=== PATIENT | female | born 1940 | race Caucasian/White ===

== ENCOUNTER 2024-06-17 13:46 | Outpatient (AMB) | payer MEDICARE, BC, SELFPAY ==
[2024-06-17 13:48] VITALS: BP 131/75; PULSE 71; RESP 17; TEMP 36.4; O2SAT 99; BMI 20.7
--- NOTE | 2024-06-17 13:48 | PD.RESCLINIC ---
Vital Signs 06/17/24 13:48 Height 1.6 m Height Method Stated Weight 53.07 kg Weight Measurement Method Standing Scale BMI 20.7 BP 131/75 H Blood Pressure Source Automatic Cuff Blood Pressure Location Left Upper Arm Position Sitting Respiration 17 Pulse 71 Pulse Source Monitor Temp 97.5 F Temp Source Oral Pulse Oximetry (%) 99 Oxygen Delivery Method Room Air Allergies/Meds Allergies & Medications Allergies codeine Allergy (Severe, Verified 07/17/24 16:17) Vomiting Medication Reconciliation levothyroxine 50 mcg tablet 50 mcg PO QDAY 11/12/20 [History Confirmed 06/17/24] metoprolol tartrate 50 mg tablet 50 mg PO BID 09/15/21 [History Confirmed 06/17/24] trazodone 100 mg tablet 100 mg PO HS 09/15/21 [History Confirmed 06/17/24] dexlansoprazole 60 mg capsule,biphase delayed release 60 mg PO QDAY 05/19/24 [History Confirmed 06/17/24] loratadine 10 mg tablet (Allergy Relief (loratadine)) 10 mg PO QDAY 05/19/24 [History Confirmed 06/17/24] losartan 50 mg tablet 50 mg PO QDAY 05/19/24 [History Confirmed 06/17/24] sertraline 25 mg tablet 25 mg PO QDAY 05/19/24 [History Confirmed 06/17/24] vonoprazan 20 mg tablet (Voquezna) 20 mg PO QDAY 05/19/24 [History Confirmed 06/17/24] montelukast 10 mg tablet 10 mg PO QDAY 06/06/24 [History Confirmed 06/17/24] mecobalamin (vitamin B12) 5,000 mcg disintegrating tablet 5,000 mcg PO QWEEK #4 tabs 06/10/24 [Rx Confirmed 06/17/24] omeprazole 40 mg capsule,delayed release 40 mg PO BID #60 caps 06/10/24 [Rx Confirmed 06/17/24] dextromethorphan polistirex 30 mg/5 mL oral susp ext.release 12hr (Robitussin ER) 10 ml PO Q12H #89 mL 06/17/24 [Rx] megestrol 800 mg/20 mL (20 mL) oral suspension 200 mg (5 mL) PO BID #1,000 mL 11/19/24 [Rx] MA Intake Visit Data Collection New Patient or Established: Established Patient (seen at [facility] within 3 years) Seen by Clinical Staff ONLY (RN/MA): No Pain Present Currently: Yes Pain Location: Mouth Pain scale:: 5 Pain Scale Used: Gonzales-Maurer/Numerical PCP or OBGYN visit in last 3 months: Yes Do You Feel Safe at Home: Yes Authorities Contacted: N/A Smoking Status Smoking Status: Never smoker Immunization / Flu Flu Vaccine in the Last 12 Months: No Flu Vaccine Exclusion Criteria: No Exclusion Criteria Past Medical History Past Medical History NEUROLOGIC: Negative Neurological Disorders or Seizures CARDIAC: Positive Cardiac Disorders, Cardiac Arrhythmia (A FIB) and Hypertension; Negative Congestive Heart Failure RESPIRATORY: Positive Intubation (08/31 cardiac arrest 02/14/19); Negative Chronic Obstructive Pulmonary Disease (COPD) or Asthma GASTROINTESTINAL: Positive Gastrointestinal Disorders, Gall Bladder Disease and Gastroesophageal Reflux Disease GENITOURINARY: Negative Genitourinary Disorders or Renal Disease REPRODUCTIVE: Negative Pelvic Inflammatory Disease ENDOCRINE: Positive Endocrine Disorders, Hyperthyroidism and Hypothyroidism; Negative Diabetes Mellitus Type 1 or Diabetes Mellitus Type 2 HEMATOLOGIC: Negative Blood Disorders or Sickle Cell Disease OTHER HISTORY: Negative Hospitalization, Blood Transfusions, Blood Transfusion Reaction or Anesthesia Reactions Family History FAMILY HISTORY: Negative Family Cardiac Disorders Surgical History SURGICAL: Positive Auto Implanted Cardiovert Defib and Abdominal Surgery; Negative Cardiac Surgery, Endocrine Surgery, Ear Surgery, Nephrectomy or Joint Replacement Social History SMOKING STATUS: Smoking status: Never smoker ALCOHOL: Alcohol Intake: Never HOUSING: Housing: House LIVES WITH: Lives With: Alone Patient Portal Questionaires Social History Living Situation History Housing: House Housing Other:: Patient lives alone Tobacco History Smoking Status: Never smoker Alcohol History Alcohol Intake: Never Domestic Abuse History Do You Feel Safe at Home: Yes Review of Systems Report any current symptoms Only answer those that you have currently: Past Medical History Past Medical History Have you ever been diagnosed with any of the following: Neurological Problems Seizures: No Cardiology Problems Cardiac Arrhythmia: Yes (A FIB) Congestive Heart Failure: No Hypertension: Yes Respiratory Problems Chronic Obstructive Pulmonary Disease (COPD): No Asthma: No Intubation: Yes (08/31 cardiac arrest 02/14/19) Stomache/Intestinal Problems Gall Bladder Disease: Yes Gastroesophageal Reflux Disease: Yes Genital/Urinary Problems Renal Disease: No Reproductive Problems Pelvic Inflammatory Disease: No Endocrine Problems Diabetes Mellitus Type 1: No Diabetes Mellitus Type 2: No Hyperthyroidism: Yes Hypothyroidism: Yes Blood Problems Sickle Cell Disease: No Other Problems Hospitalization: No Blood Transfusions: No Blood Transfusion Reaction: No Anesthesia Reactions: No History of Present Illness HPI Narrative Ms. 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 Dawkins outpatient extensively and also at [facility] and [place], as per them she is a poor candidate for surgery because of her underlying heart condition. Patient was seen recently at the clinic, was sent for further workup including AchR antibodies, vitamin B12 level, iron level.Patient's vitamin B12 studies showed B12 of 329, folate of 11.5, within normal limits, acetylcholine receptor antibodies were negative. Patient's fluoroscopy showed moderate intermittent gastroesophageal reflux, 20% stenosis at GE junction likely reflux esophagitis. Patient reported already taking pantoprazole 40 mg on a daily basis without relief. She does not use dentures, reports using blended food and eats meals in bed. she was counseled regarding taking protein supplements and megestrol Patient verbalized understanding, discussed with patient about obtaining dentures. she was counseled about her condition that surgery is the only cure as for now and because of her medical condition she is not a surgical candidate. will prescribe her mucolytic . extensive counceling done on her condition. Review of Systems Review of Systems Systems Reviewed: All systems reviewed, normal except as documented Narrative Review of Systems: GENERAL: Comfortable adult seen resting no acute distress, lean and thin appearance VITALS: All vitals were reviewed and the pulse ox is 98% on room air HEENT: Normocephalic, atraumatic. Pupils are equal and reactive. no dentures in mouth NECK: Supple, nontender, no JVD CARDIOVASCULAR: Heart regular rhythm & rate. S1/S2. no murmur or gallop rub or extra beats.AICD in chest noted LUNGS: Clear to auscultation bilaterally with symmetrical chest rise. No laboring tachypnea or wheezing. No intercostal subcostal retraction. No rales and no rhonchi. ABDOMEN: Soft, flat, nontender to palpation, no guarding or rebound tenderness. Active and normal bowel sounds. EXTREMITIES:Moves all 4 extremities,No B/L LE edema. SKIN: Warm and dry, no jaundice or rashes noted. NEURO: Patient is AO x 3, Cranial nerves II through XII grossly intact. There is no focal neurologic deficits noted. PSYCHIATRIC: Patient is in normal mood, cooperative, no SI or HI or hallucinations. Assessment & Plan Diagnosis / Problem List (1) Dysphagia: Status: Suspected Qualifiers: Dysphagia type: oropharyngeal phase Qualified Code(s): R13.12 - Dysphagia, oropharyngeal phase Assessment & Plan: She is complaining of excessive mucus production previous Acetylcholine receptor antibodies negative,Vitamin B12 levels WNL, folate WNL, Fluoroscopy significant for moderate intermittent gastroesophageal reflux 20% stenosis at the GE junction likely reflux esophagitis,Recommended follow-up with her dentist for dentures, patient does not want dentures - Followed up with Dr. Dawkins outpatient extensively and also at [facility] and [place], patient is a poor candidate for surgery because of her underlying heart condition. Plan: -Continue omeprazole 40 mg twice daily for 30 days - Started Robutisson - Continue vitamin B12 5000 weekly for 1 month - Patient counseled on importance of sitting straight in a chair and avoiding distractions while eating, counseled on focusing on swallowing. - Patient counseled on eating small bites, followed by sips of water as needed. - Patient advised to continue to eat blended food and take aspiration precautions. - Patient counseled on not lying down for 2 hours after finishing meals. - Recommended follow-up with GI in higher center - Recommended follow-up with dentist to obtain dentures. (2) Zenker diverticulum: Status: Acute Assessment & Plan: - Followed up with Dr. Dawkins outpatient extensively and also at [facility] and [place], patient is a poor candidate for surgery because of her underlying heart condition. Plan: recommended to follow up in higher center (3) Appetite impaired: Status: Acute Assessment & Plan: As per patient she is been loosing weight. she was 170 Lb beforce icd placement and is now around 116 Lb Plan: -started her on Megesterol -counceled her to take OTC protein suppliments Additional Assessment Attending note: I, Juan Tomas MD, attest that I was physically present for the garcia portions of the service and evaluated the patient with the resident and I reviewed and discussed the case with the resident and agree with the resident's findings and plans of care as documented above. Follow-up visit. Medication reviewed. Self-care and diet reviewed. We are trying Megace to help stimulate appetite. Underlying issue of Zenker's diverticulum likely responsible for continuing symptoms of dysphagia, and excess salivation/mucus production. She has lost 1 kg since last visit. No other changes to regimen today. Juan Tomas MD Advanced Care Planning Advance care planning discussed with:: patient Physician Billing Established Patient Established Patient: E/M Level 3-CPT 09475 Office Procedures [facility] Level of Care Nursing/Assessment Patient Status: Established Patient Nursing Assessment/Reassessment: Medication Reconciliation, Update PMH in EMR and Vital Signs Coordination of Care: Complex Care and Chronic Disease 1-5, Education Complex Pt/Fam and Staff clarify orders Established Patient Charge Established Patient Point Assignment: 85 Established Patient Point Charge: EP Level 3 (80-115)
== END 2024-06-17 14:30 | disposition home or self-care (01) ==
LOC: HODAHC 13:46
PROVIDERS: Supervising Provider Internal Medicine; Visit Provider Student in an Organized Health Care Education/Training Program
DX: R13.12 Dysphagia, oropharyngeal phase (principal); K22.5 Diverticulum of esophagus, acquired; R63.0 Anorexia; Z68.20 Body mass index [BMI] 20.0-20.9, adult
CPT/HCPCS: 99213; G0463

== ENCOUNTER 2024-07-17 16:12 | Emergency (ER) | payer MEDICARE, BC, SELFPAY ==
[2024-07-17 16:48] VITALS: BP 146/78; PULSE 71; RESP 18; TEMP 37; O2SAT 96
--- NOTE | 2024-07-17 17:13 | XR_ITS ---
Examination: Knee, right , 3 views Technique: Knee AP, lateral, oblique 3 views Date and time of exam: July 17, 2024 1730 hours INDICATIONS: Patient fell today with injury to the knee, knee pain. FINDINGS: No fracture or dislocation Small knee effusion IMPRESSION: No fracture or dislocation
--- NOTE | 2024-07-17 17:13 | XR_ITS ---
Examination: Ribs, bilateral, with PA chest, 5 views Technique: Chest PA, RIBS AP, RPO, LPO, AP coned lower ribs 5 views Exam date and time: July 17, 2024 1730 hours INDICATIONS: Patient fell today with injury to right and left chest, bilateral rib pain Findings: No significant cardiac enlargement Cardiac leads satisfactory position No pneumothorax Severe osteopenia No acute rib fractures IMPRESSION: No pneumothorax pulmonary contusion or hemothorax No acute rib fractures
--- NOTE | 2024-07-17 17:13 | XR_ITS ---
Examination: Hand, left 3 views Technique: Hand AP, oblique, lateral 3 views Date and time of exam: July 10, 2024 1730 hours INDICATIONS: Patient fell today with injury to the hand, hand pain FINDINGS: Prominent osteopenia No acute fracture No dislocation No foreign body IMPRESSION: No acute fracture
--- NOTE | 2024-07-17 17:15 | PD.EDRME ---
Rapid Medical Screening Exam E Arrival date/time: 07/17/24 16:12 This is a 83-year-old female presents to the emergency department with complaints of left hand right knee and bilateral rib pain status post fall. Reports she tripped over some cats outside her house. I have greeted and performed a focused initial assessment of this patient. Initial appropriate labs ordered at this time. A comprehensive ED assessment and evaluation of the patient and analysis of all test and completion of medical decision making process will be conducted by additional ED provider. Chief Complaint: Fall Time Seen by Provider: 07/17/24 16:50 Vital signs: Vital Signs Temperature 98.6 F 07/17/24 16:48 Pulse Rate 71 07/17/24 16:48 Respiratory Rate 18 07/17/24 16:48 Blood Pressure 146/78 H 07/17/24 16:48 Pulse Oximetry (%) 96 07/17/24 16:48 Oxygen Delivery Method Room Air 07/17/24 16:48
[2024-07-17] MEDS: ACETAMINOPHEN 500 MG TABLET 1000 MG PO (17:23)
--- NOTE | 2024-07-17 19:40 | PC.NURSE ---
CALLED PT IN ER LOBBY AND OUTSIDE OF ER AND NO ANSWER AT THIS TIME.
--- NOTE | 2024-07-17 20:15 | PC.NURSE ---
CALLED PT IN ER LOBBY AND OUTSIDE OF ER AND NO ANSWER AT THIS TIME.
--- NOTE | 2024-07-17 20:50 | PC.NURSE ---
CALLED PT IN ER LOBBY AND OUTSIDE OF ER AND NO ANSWER AT THIS TIME.
== END 2024-07-17 20:49 | disposition left against medical advice (07) ==
PROVIDERS: Emergency Provider Emergency Medicine; PCP Family Medicine
DX: S69.92XA Unspecified injury of left wrist, hand and finger(s), initial encounter (principal); S29.9XXA Unspecified injury of thorax, initial encounter; S89.91XA Unspecified injury of right lower leg, initial encounter; W01.0XXA Fall on same level from slipping, tripping and stumbling without subsequent striking against object, initial encounter; Z53.29 Procedure and treatment not carried out because of patient's decision for other reasons
CPT/HCPCS: 71111; 73130; 73562; 99281; A9270

== ENCOUNTER 2025-01-03 01:39 | Emergency (ER) | payer MEDICARE, BC, SELFPAY ==
[2025-01-03 01:49] VITALS: BP 162/77; PULSE 70; RESP 18; TEMP 36.9; O2SAT 98
--- NOTE | 2025-01-03 02:53 | PD.EDADDENDU ---
Emergency Room Addendum Addendum Narrative: Before I saw the patient, I was told the patient eloped. Vincenzo Peck MD
== END 2025-01-03 06:12 | disposition left against medical advice (07) ==
LOC: SERX 03:02
PROVIDERS: Emergency Provider Emergency Medicine
DX: Z53.21 Procedure and treatment not carried out due to patient leaving prior to being seen by health care provider (principal)
CPT/HCPCS: 99281

== ENCOUNTER 2025-01-05 09:42 | Emergency (ER) | payer MEDICARE, SELFPAY ==
[2025-01-05 09:45] VITALS: BMI 20.7
[2025-01-05 09:53] VITALS: BP 170/89; PULSE 70; RESP 17; TEMP 36.5; O2SAT 96
--- NOTE | 2025-01-05 10:01 | XR_ITS ---
Examination: Ultrasound soft tissue neck TECHNIQUE: Grayscale sonographic images soft tissue neck Date and time: January 05, 2025 1014 hours INDICATIONS: Difficulty swallowing beginning one week ago FINDINGS: No cystic or solid masses noted IMPRESSION: Negative study If symptoms persist, consider CT soft tissue neck post intravenous contrast follow-up
--- NOTE | 2025-01-05 10:02 | PD.EDRME ---
Rapid Medical Screening Exam E Arrival date/time: 01/05/25 09:42 84-year-old female with a history of hypothyroidism, hypertension, a pacemaker, presents to the emergency room with a chief complaint of 1 week of difficulty swallowing and increased phlegm. Patient states she feels like food is getting stuck in her throat. I have greeted and performed a focused initial assessment of this patient. A comprehensive ED assessment and evaluation of the patient, analysis of all test results, and completion of the medical decision making process will be conducted by additional ED providers. Chief Complaint: Shortness of Breath/Dyspnea Time Seen by Provider: 01/05/25 09:48 Vital signs: Vital Signs Temperature 97.7 F 01/05/25 09:53 Pulse Rate 70 01/05/25 09:53 Respiratory Rate 17 01/05/25 09:53 Blood Pressure 170/89 H 01/05/25 09:53 Pulse Oximetry (%) 96 01/05/25 09:53 Oxygen Delivery Method Room Air 01/05/25 09:53 Vital signs reviewed by provider: Yes
--- NOTE | 2025-01-05 10:04 | XR_ITS ---
Examination: PA lateral chest 2 views TECHNIQUE: Upright PA lateral chest 2 views Date and time: January 05, 2025 1039 hours Comparison July 17, 2024 INDICATIONS: Patient states something stuck in the throat FINDINGS: Mild CHF Mild enlargement cardiac contour. Prominent vascular congestion with perihilar basilar edema Small bilateral pleural effusions Cardiac leads satisfactory position IMPRESSION: Mild CHF
[2025-01-05 10:21] LABS: Basophils # (Auto) 0.1 Thou/mm3 (0.0-0.2); Basophils % (Auto) 1 % (0-2.5); Eosinophils % (Auto) 0 % (0-10); Hematocrit 34.2 % (36.0-46.0); Hemoglobin 12.1 g/dL (12.0-16.0); Immature Granulocytes % (Auto) 0 % (0-0); Immature Granulocytes Auto 0.03 Thou/mm3 (0.00-0.00); Lymphocytes # (Auto) 1.3 Thou/mm3 (1.0-4.8); Lymphocytes % (Auto) 14 % (10-50); Mean Corpuscular HGB Conc 35.4 g/dl (31.0-37.0); Mean Corpuscular Hemoglobin 33.7 pg (25.0-35.0); Mean Corpuscular Volume 95 fL (80-100); Monocytes # (Auto) 0.9 Thou/mm3 (0.0-0.8); Monocytes % (Auto) 10 % (0-12); Neutrophils # (Auto) 6.6 Thou/mm3 (1.8-7.7); Neutrophils % (Auto) 74 % (37-80); Nucleated Red Blood Cell % 0 /100 WBC (0); Platelet Count 195 Thou/mm3 (140-440); RDW Standard Deviation 71.9 fL (36.4-46.3); Red Blood Count 3.59 Miln/mm3 (4.00-5.20); White Blood Count 8.9 Thou/mm3 (3.6-11.0)
[2025-01-05 10:35] LABS: Alanine Aminotransferase 34 U/L (10-49); Albumin/Globulin Ratio 1.8 (1.2-2.2); Alkaline Phosphatase 107 U/L (46-116); Anion Gap 11 (7-16); BUN/Creatinine Ratio 9 Ratio (12-20); Bilirubin,Total 1.3 mg/dL (0.3-1.2); Blood Urea Nitrogen 10 mg/dL (9-23); Calcium 9.1 mg/dL (8.3-10.6); Calcium (Corrected) 9.1 mg/dL (8.5-10.1); Carbon Dioxide 24.2 mMol/L (20.0-31.0); Chloride 106 mMol/L (98-107); Creatinine (Component) 1.1 mg/dL (0.6-1.3); Globulin 2.2 gm/dL (2.3-3.5); Glucose 133 mg/dL (74-106); Osmolality,Calculated 282 (275-295); Potassium 3.8 mMol/L (3.4-5.1); Sodium 141 mMol/L (136-145); Total Protein 6.2 gm/dL (5.7-8.2); eGFR 50 See Note
[2025-01-05 10:54] LABS: Collection Type, Urine Clean Catch
[2025-01-05 11:20] LABS: Bilirubin,Urine Negative (Negative); Blood,Urine Negative (Negative); Clarity,Urine Clear (Clear/Hazy); Color,Urine Yellow (Lt Yel-Yel); Culture Indicated,Urine Not Indicated; Glucose, Urine Negative (Negative); Ketones,Urine Negative (Negative); Leukocyte Esterase,Urine Negative (Negative); Nitrite,Urine Negative (Negative); PH,Urine 6.5 (5.0-7.0); Protein,Urine Negative (Neg - Trace); RBC,Urine 2 /hpf (0-3); Squamous Epithelial Cell,Urine 4 /hpf (0-5); Urobilinogen,Urine Negative mg/dL (0.0-1.0); WBC,Urine 1 /hpf (0-5)
--- NOTE | 2025-01-05 12:17 | PC.NURSE ---
seen by josefina joe
== END 2025-01-05 12:17 | disposition left against medical advice (07) ==
LOC: SERX 10:09
PROVIDERS: Nurse Practitioner Family; Emergency Provider Family Medicine; PCP Family Medicine
DX: R13.10 Dysphagia, unspecified (principal); R06.02 Shortness of breath; R06.00 Dyspnea, unspecified; Z53.29 Procedure and treatment not carried out because of patient's decision for other reasons
CPT/HCPCS: 36415; 71046; 76536; 80053; 81001; 85025; 99281

== ENCOUNTER → 2025-01-29 | Outpatient (CLI) | payer MEDICARE, BC, SELFPAY ==
--- NOTE | 2025-01-29 09:30 | XR_ITS ---
Examination: Upper GI series with KUB Esophagram standard Fluoroscopy 25 films of the esophagus and stomach Date and time: January 29, 2025 at 1013 hours INDICATIONS: Difficulty swallowing 5 years. TECHNIQUE AND FINDINGS: Cycle Repairer AP supine abdomen nonobstructive bowel gas pattern Patient swallowed thin barium with severe esophageal dysmotility, lack of primary esophageal waves, numerous secondary and tertiary esophageal contractions, esophageal spasm Moderate continuous gastroesophageal reflux Large sliding esophageal hernia No esophageal stricture No gastric mass deformity or ulceration Duodenal bulb expands symmetrically Fluoroscopy 0.21 minutes IMPRESSION: Severe esophageal dysmotility Moderate continuous gastroesophageal reflux No gastric mass deformity or ulceration
== END | disposition home or self-care (01) ==
PROVIDERS: PCP Internal Medicine; Referring Provider Internal Medicine; Visit Provider Internal Medicine
DX: K21.9 Gastro-esophageal reflux disease without esophagitis (principal); K22.89 Other specified disease of esophagus
CPT/HCPCS: 74240; A4649

== ENCOUNTER → 2025-02-24 | Outpatient (CLI) | payer MEDICARE, BC, SELFPAY ==
[2025-02-24 11:07] LABS: Collection Type, Urine Clean Catch
[2025-02-24 11:41] LABS: Basophils # (Auto) 0.1 Thou/mm3 (0.0-0.2); Basophils % (Auto) 1 % (0-2.5); Eosinophils # (Auto) 0.0 Thou/mm3 (0.0-0.5); Eosinophils % (Auto) 1 % (0-10); Hematocrit 36.2 % (36.0-46.0); Hemoglobin 12.4 g/dL (12.0-16.0); Immature Granulocytes Auto 0.02 Thou/mm3 (0.00-0.00); Lymphocytes # (Auto) 1.1 Thou/mm3 (1.0-4.8); Lymphocytes % (Auto) 18 % (10-50); Mean Corpuscular HGB Conc 34.3 g/dl (31.0-37.0); Mean Corpuscular Hemoglobin 34.8 pg (25.0-35.0); Mean Corpuscular Volume 102 fL (80-100); Monocytes # (Auto) 0.6 Thou/mm3 (0.0-0.8); Monocytes % (Auto) 9 % (0-12); Neutrophils # (Auto) 4.3 Thou/mm3 (1.8-7.7); Neutrophils % (Auto) 71 % (37-80); Nucleated Red Blood Cell # 0.00 Thou/mm3 (0.00-0.00); Nucleated Red Blood Cell % 0 /100 WBC (0); Platelet Count 167 Thou/mm3 (140-440); RDW Standard Deviation 71.7 fL (36.4-46.3); Red Blood Count 3.56 Miln/mm3 (4.00-5.20); White Blood Count 6.1 Thou/mm3 (3.6-11.0)
[2025-02-24 11:54] LABS: Bacteria,Urine Rare; Bilirubin,Urine Negative (Negative); Blood,Urine Trace (Negative); Budding Yeast,Urine Present; Clarity,Urine Turbid (Clear/Hazy); Color,Urine Yellow (Lt Yel-Yel); Glucose, Urine Negative (Negative); Hyaline Casts,Urine < 1 /hpf (0-1); Ketones,Urine Negative (Negative); Leukocyte Esterase,Urine Positive (Negative); Nitrite,Urine Negative (Negative); PH,Urine 6.0 (5.0-7.0); Protein,Urine Trace (Neg - Trace); RBC,Urine 11 /hpf (0-3); Specific Gravity,Urine 1.021 (1.001-1.035); Squamous Epithelial Cell,Urine 15 /hpf (0-5); Urobilinogen,Urine 2.0 mg/dL (0.0-1.0); WBC,Urine 530 /hpf (0-5)
[2025-02-24 12:08] LABS: Alanine Aminotransferase 28 U/L (10-49); Albumin, Serum 3.9 gm/dL (3.4-4.8); Albumin/Globulin Ratio 1.7 (1.2-2.2); Alkaline Phosphatase 104 U/L (46-116); Anion Gap 10 (7-16); Aspartate Amino Transferase 32 U/L (0-34); BUN/Creatinine Ratio 10 Ratio (12-20); Bilirubin,Total 1.6 mg/dL (0.3-1.2); Blood Urea Nitrogen 12 mg/dL (9-23); Calcium 9.1 mg/dL (8.3-10.6); Calcium (Corrected) 9.2 mg/dL (8.5-10.1); Carbon Dioxide 25.5 mMol/L (20.0-31.0); Cardiac Risk Estimate 3.0 RATIO (3.7-5.6); Chloride 108 mMol/L (98-107); Cholesterol 167 mg/dL (132-200); Creatinine (Component) 1.2 mg/dL (0.6-1.3); Globulin 2.3 gm/dL (2.3-3.5); Glucose 100 mg/dL (74-106); HDL Cholesterol 56 mg/dL (40-60); LDL Cholesterol,Calculated 98 mg/dL (0-130); Osmolality,Calculated 284 (275-295); Potassium 4.7 mMol/L (3.4-5.1); Sodium 143 mMol/L (136-145); Thyroid Stimulating Hormone 2.84 uIU/mL (0.55-4.78); Total Protein 6.2 gm/dL (5.7-8.2); Triglycerides 65 mg/dL (30-150); eGFR 45 See Note
== END | disposition home or self-care (01) ==
LOC: COPL 09:16
PROVIDERS: PCP Family Medicine; Referring Provider Family Medicine; Visit Provider Internal Medicine Cardiovascular Disease
DX: Z00.00 Encounter for general adult medical examination without abnormal findings (principal); E78.2 Mixed hyperlipidemia; I10 Essential (primary) hypertension; I48.21 Permanent atrial fibrillation; E03.9 Hypothyroidism, unspecified; R63.4 Abnormal weight loss
CPT/HCPCS: 36415; 80053; 80061; 81001; 84443; 85025

== ENCOUNTER 2025-04-07 08:22 | Emergency (ER) | payer MEDICARE, BC, SELFPAY ==
[2025-04-07 08:26] VITALS: BP 160/77; PULSE 70; RESP 18; TEMP 36.4; O2SAT 100
[2025-04-07 08:33] VITALS: PULSE 84; RESP 18; O2SAT 99; BMI 19.2
--- NOTE | 2025-04-07 08:35 | EKG_ITS ---
[facility] Test Date: 2025-04-07 Pat Name: CORA DOW Department: Room: - Gender: Female Scrap Sorter: : 1940 Requested By: Isreal Foster Order Number: [id number] Reading MD: Isreal Foster Measurements Intervals Scheller Rate: 70 P: 147 AZ: 158 QRS: -39 QRSD: 96 T: 38 QT: 430 QTc: 465 Interpretive Statements ELECTRONIC ATRIAL PACEMAKER LEFT AXIS DEVIATION [QRS AXIS < -30] NONSPECIFIC ST & T-WAVE ABNORMALITY Compared to ECG 05/18/2024 15:41:30 Left-axis deviation now present T-wave abnormality now present ST (T wave) deviation no longer present /store/S0/[id number]/ecg/[id number].pdf
--- NOTE | 2025-04-07 08:35 | XR_ITS ---
Examination: AP chest single view TECHNIQUE: Portable upright AP chest single view Date and time: April 07, 2025 0914 hours, comparison January 05, 2025 INDICATIONS: Coughing shortness of breath today FINDINGS: Minimal prominence left ventricle. Cardiac leads satisfactory position. No pneumonia or pulmonary edema. Prominent osteopenia. Cervical orthopedic hardware IMPRESSION: No active disease
[2025-04-07 09:00] LABS: Basophils # (Auto) 0.1 Thou/mm3 (0.0-0.2); Basophils % (Auto) 1 % (0-2.5); Eosinophils # (Auto) 0.0 Thou/mm3 (0.0-0.5); Eosinophils % (Auto) 1 % (0-10); Hematocrit 36.2 % (36.0-46.0); Hemoglobin 12.7 g/dL (12.0-16.0); Immature Granulocytes Auto 0.02 Thou/mm3 (0.00-0.00); Lymphocytes # (Auto) 2.1 Thou/mm3 (1.0-4.8); Lymphocytes % (Auto) 33 % (10-50); Mean Corpuscular HGB Conc 35.1 g/dl (31.0-37.0); Mean Corpuscular Hemoglobin 34.6 pg (25.0-35.0); Mean Corpuscular Volume 99 fL (80-100); Monocytes # (Auto) 0.8 Thou/mm3 (0.0-0.8); Monocytes % (Auto) 12 % (0-12); Neutrophils # (Auto) 3.4 Thou/mm3 (1.8-7.7); Neutrophils % (Auto) 53 % (37-80); Nucleated Red Blood Cell # 0.00 Thou/mm3 (0.00-0.00); Nucleated Red Blood Cell % 0 /100 WBC (0); Platelet Count 190 Thou/mm3 (140-440); RDW Standard Deviation 62.1 fL (36.4-46.3); Red Blood Count 3.67 Miln/mm3 (4.00-5.20); White Blood Count 6.5 Thou/mm3 (3.6-11.0)
--- NOTE | 2025-04-07 09:12 | PD.EDURI ---
Upper Respiratory Inf. RME/HPI General Chief Complaint: Flu Like Symptoms Stated Complaint: COLD/ FLU Time Seen by Provider: 04/07/25 08:30 Arrival date/time: 04/07/25 08:22 RME / HPI RME / HPI Narrative: Patient is an 84-year-old female who was brought in by EMS with chief complaint of several days of cough, sputum production, generally not feeling well as well as dysuria. Patient states that she is producing a lot of phlegm from her throat. She appears very anxious at presentation, is upset that, stating that she in this hospital once and she is afraid she is going to again. She denies chest pain, diaphoresis, nausea or vomiting. She denies trauma. No headache, fevers, shakes, chills, sweats. No abdominal pain or lower back pain. Related Data Home Medications ?Medication ?Instructions ?Recorded ?Confirmed levothyroxine 50 mcg tablet 50 mcg PO QDAY 11/12/20 06/17/24 metoprolol tartrate 50 mg tablet 50 mg PO BID 09/15/21 06/17/24 trazodone 100 mg tablet 100 mg PO HS 09/15/21 06/17/24 dexlansoprazole 60 mg 60 mg PO QDAY 05/19/24 06/17/24 capsule,biphase delayed release Held on 05/19/24. Instructions: Doctor's Order loratadine 10 mg tablet (Allergy 10 mg PO QDAY 05/19/24 06/17/24 Relief (loratadine)) losartan 50 mg tablet 50 mg PO QDAY 05/19/24 06/17/24 sertraline 25 mg tablet 25 mg PO QDAY 05/19/24 06/17/24 vonoprazan 20 mg tablet (Voquezna) 20 mg PO QDAY 05/19/24 06/17/24 Held on 05/19/24. Instructions: Doctor's Order montelukast 10 mg tablet 10 mg PO QDAY 06/06/24 06/17/24 Previous Rx's ?Medication ?Instructions ?Recorded mecobalamin (vitamin B12) 5,000 5,000 mcg PO QWEEK #4 tabs 06/10/24 mcg disintegrating tablet omeprazole 40 mg capsule,delayed 40 mg PO BID #60 caps 06/10/24 release dextromethorphan polistirex 30 10 ml PO Q12H #89 mL 06/17/24 mg/5 mL oral susp ext.release 12hr (Robitussin ER) megestrol 800 mg/20 mL (20 mL) 200 mg (5 mL) PO BID #1,000 mL 06/17/24 oral suspension Allergies Allergy/AdvReac Type Severity Reaction Status Date / Time codeine Allergy Severe Vomiting Verified 04/07/25 08:38 Review of Systems Review of Systems Systems Reviewed: All systems reviewed, normal except as documented Past Medical History Past Medical History CARDIAC: Positive Cardiac Disorders, Cardiac Arrhythmia (A FIB) and Hypertension RESPIRATORY: Positive Intubation (2/2 cardiac arrest 02/14/19) GASTROINTESTINAL: Positive Gastrointestinal Disorders and Gall Bladder Disease ENDOCRINE: Positive Endocrine Disorders, Hyperthyroidism and Hypothyroidism Surgical History SURGICAL: Positive Auto Implanted Cardiovert Defib and Abdominal Surgery Social History SMOKING STATUS: Never smoker SUBSTANCE USE: does not use ED Exam Narrative Physical exam: See MDM Course Quality Measures none Orders Category Date Time Status Bedside COVID-19 Antigen Test NOW Care 04/07/25 08:36 Active Bedside Influenza A&B Antigen Test NOW Care 04/07/25 08:37 Completed Community Living Instructor NOW Care 04/07/25 08:35 Active Continuous Pulse Oximetry NOW Care 04/07/25 08:35 Completed EKG (ED ONLY) *Do not use* NOW Care 04/07/25 08:35 Completed Insert IV NOW Care 04/07/25 08:35 Active EKG (ED Only) Stat Exams 04/07/25 08:35 Draft XR chest 1V portable Stat Exams 04/07/25 08:35 Completed B-Type Natriuretic Peptide Stat Lab 04/07/25 08:49 Completed CBC Stat Lab 04/07/25 08:49 Completed Comprehensive Metabolic Panel Stat Lab 04/07/25 08:49 Completed Magnesium Stat Lab 04/07/25 08:49 Completed RSV [Respiratory Syncytial Virus Ag] Stat Lab 04/07/25 07:36 Completed Troponin I Stat Lab 04/07/25 08:49 Completed Urinalysis, C/S if Indicated Stat Lab 04/07/25 10:50 Completed Vital Signs Vital signs: Vital Signs Temperature 97.5 F 04/07/25 08:26 Pulse Rate 70 04/07/25 08:26 Respiratory Rate 18 04/07/25 08:26 Blood Pressure 160/77 H 04/07/25 08:26 Pulse Oximetry (%) 100 04/07/25 08:26 Oxygen Delivery Method Room Air 04/07/25 08:26 Pulse ox is 100% on room air which is adequate. Upper Respiratory Infection MDM Narrative MDM Narrative:: This section includes all my notes and documentations, including HPI, PE, and ED course. Dayo Matias MD ? HPI: Patient is an 84-year-old female who was brought in by EMS with chief complaint of several days of cough, sputum production, generally not feeling well as well as dysuria. Patient states that she is producing a lot of phlegm from her throat. She appears very anxious at presentation, is upset that, stating that she in this hospital once and she is afraid she is going to again. She denies chest pain, diaphoresis, nausea or vomiting. She denies trauma. No headache, fevers, shakes, chills, sweats. No abdominal pain or lower back pain. ROS: All negative except as documented in HPI. ? PE: GENERAL APPEARANCE:? alert and oriented x 4, well-developed, well-nourished, appears anxious, no respiratory distress VITALS: All vitals were reviewed and the pulse ox is % on room air, which is normal according to my interpretation. HEENT: Normocephalic, atraumatic; pupils equal, round, reactive to light; EOMI; mucous membranes pink, moist; oropharynx clear NECK: Supple LUNGS: CTABL; no wheezes, no rales, no rhonchi HEART: Regular rate, regular rhythm; normal S1, S2; no murmurs ABDOMEN: non distended; normal BS;? soft, no tenderness, no guarding, no rebound; no masses, no organomegaly, no hernia?? BACK:? no CVA tenderness EXTREMITIES:? atraumatic; no edema NEUROLOGIC: awake; alert and oriented x4; cranial nerves II-XII grossly intact; no focal sensory or motor deficits PSYCHIATRIC:? appropriate mood and affect SKIN: warm, dry, normal color; no rashes Plan is for blood work, chest x-ray, swabs and reevaluation I reviewed EMS notes. I reviewed all diagnostic test results: My interpretation of the chest x-ray is nml diaphragmatic edge, sharp costophreic angles, nml cardiac silhouette, no infiltrates, dual chamber pacemaker in place. My interpretation of the EKG @ 09:12h paced rhythm with ventricular rate of 70, good sensing and good capture, no signs of ischemia. Blood tests and urine test: No leukocytosis, RSV negative. Covid/Influenza: Negative. ? At this point, diagnoses include: Upper respiratory infection ? Treatment here included: No medications given in the ED. ? Significant improvement noted. ? Recommended outpatient care. ? Based on my best medical judgment, made decision no further evaluation or treatment indicated at this time. Patient understands and agrees to the customized discharge instructions and printed, see below. ? Discharge instructions from Dr. Matias: Please return to the emergency department if you have any worsening or any further medical problems and we will help you. Otherwise you should follow-up with your primary care doctor within the next several days Patient data External records reviewed:: [facility] previous records and EMS form Clinical information provided by:: patient Social determinants that could affect healthcare access:: none Patient has the following chronic illnesses:: Hypertension, atrial fibrillation How is presenting disease/condition affected by chronic disease/condition?: exacerbated by Evaluation data The following diagnostics were reviewed and interpreted by me:: lab results, radiology exam(s) and EKG tracing(s) Lab and/or radiology exams considered but not ordered:: None Interpretation Summary: See [facility] Medications / Prescriptions Medications or Prescriptions considered but not ordered:: None Medication administrations:: See [facility] Consultations Consultation(s) initiated? (list below): No Diagnosis Upper Respiratory Differential Diagnosis: upper respiratory infection, viral infection, bronchitis and influenza Most likely diagnosis given after review of the tests above:: URI Admission Indicated Admission indicated?: not indicated Admission Request Was there a request for admission?: No Disposition Plan Disposition Plan: Discharge Discharge Attestation Discharge Attestation: The patient and all family members were given an opportunity to ask questions and understood the discharge instructions. Discharge instructions specifically effects, indications for sooner follow up or return to the emergency department, and the expected course of current diagnosis. Patient condition: Stable Discharge Plan Plan Patient Disposition: HOME (Self Care) Discharge Disposition comment: Stable for discharge home Patient condition on transfer: Stable Prescriptions/Referrals Prescriptions/Med Rec: No Action dexlansoprazole 60 mg capsule,biphase delayed releas 60 mg PO QDAY Voquezna 20 mg tablet 20 mg PO QDAY losartan 50 mg tablet 50 mg PO QDAY loratadine [Allergy Relief (loratadine)] 10 mg tablet 10 mg PO QDAY sertraline 25 mg tablet 25 mg PO QDAY montelukast 10 mg tablet 10 mg PO QDAY megestrol 800 mg/20 mL (20 mL) suspension 200 mg PO BID Qty: 1000 0RF dextromethorphan polistirex [Robitussin ER] 30 mg/5 mL suspension,extended rel 12 hr 10 ml PO Q12H Qty: 89 0RF omeprazole 40 mg capsule,delayed release(DR/EC) 40 mg PO BID Qty: 60 2RF mecobalamin (vitamin B12) 5,000 mcg tablet,disintegrating 5,000 mcg PO QWEEK Qty: 4 0RF levothyroxine 50 mcg tablet 50 mcg PO QDAY trazodone 100 mg Tablet 100 mg PO HS metoprolol tartrate 50 mg Tablet 50 mg PO BID Referrals: Yvon Lopez [Primary Care Provider] - In 1 week Problem List Clinical Impression: Upper respiratory infection, viral Patient/Caregiver Discharge Instructions Discharge Activity: activity as tolerated Diet Instructions: No restrictions Education Materials: ED URI, Viral, No Abx (Adult) Additional Instructions: Please return to the emergency department if you have any worsening or any further medical problems and we will help you. Otherwise you should follow-up with your primary care doctor within the next several days Print Language: Serbian Stand Alone Forms: [employer]ira Award Info., Patient Portal Info Letter
[2025-04-07 09:19] VITALS: PULSE 70
[2025-04-07 09:23] LABS: Alanine Aminotransferase 12 U/L (10-49); Albumin, Serum 3.8 gm/dL (3.4-4.8); Albumin/Globulin Ratio 1.6 (1.2-2.2); Alkaline Phosphatase 74 U/L (46-116); Anion Gap 13 (7-16); Aspartate Amino Transferase 16 U/L (0-34); B-Type Natriuretic Peptide 158 pg/mL (0-100); BUN/Creatinine Ratio 12 Ratio (12-20); Bilirubin,Total 2.3 mg/dL (0.3-1.2); Blood Urea Nitrogen 13 mg/dL (9-23); Calcium 9.3 mg/dL (8.3-10.6); Calcium (Corrected) 9.5 mg/dL (8.5-10.1); Carbon Dioxide 24.2 mMol/L (20.0-31.0); Chloride 104 mMol/L (98-107); Creatinine (Component) 1.1 mg/dL (0.6-1.3); Estimated Creatinine Clearance 31.6 mL/min (>60); Globulin 2.4 gm/dL (2.3-3.5); Glucose 98 mg/dL (74-106); Magnesium 1.8 mg/dL (1.6-2.6); Osmolality,Calculated 281 (275-295); Potassium 4.0 mMol/L (3.4-5.1); Sodium 141 mMol/L (136-145); Total Protein 6.2 gm/dL (5.7-8.2); Troponin I < 0.020 ng/mL (0.0-0.045); eGFR 50 See Note
[2025-04-07 10:07] LABS: Respiratory Syncytial Virus Ag Negative (Negative)
[2025-04-07 11:00] LABS: Collection Type, Urine Clean Catch
[2025-04-07 11:07] LABS: Bilirubin,Urine Negative (Negative); Blood,Urine Negative (Negative); Clarity,Urine Clear (Clear/Hazy); Color,Urine Lt-Yellow (Lt Yel-Yel); Culture Indicated,Urine Not Indicated; Glucose, Urine Negative (Negative); Ketones,Urine Negative (Negative); Leukocyte Esterase,Urine Negative (Negative); Nitrite,Urine Negative (Negative); PH,Urine 7.5 (5.0-7.0); Protein,Urine Negative (Neg - Trace); RBC,Urine 1 /hpf (0-3); Specific Gravity,Urine 1.006 (1.001-1.035); Squamous Epithelial Cell,Urine 1 /hpf (0-5); Urobilinogen,Urine Negative mg/dL (0.0-1.0); WBC,Urine < 1 /hpf (0-5)
[2025-04-07 11:10] VITALS: BP 155/69; PULSE 71; RESP 18; TEMP 36.4; O2SAT 100
== END 2025-04-07 12:46 | disposition home or self-care (01) ==
PROVIDERS: Emergency Provider Emergency Medicine; PCP Internal Medicine
DX: J06.9 Acute upper respiratory infection, unspecified (principal); Z95.0 Presence of cardiac pacemaker
CPT/HCPCS: 36415; 71045; 80053; 81001; 83735; 83880; 84484; 85025; 87400; 87634; 87811; 93005; 99284

== ENCOUNTER 2025-05-02 13:09 | Emergency (ER) | payer MEDICARE, BC, SELFPAY ==
[2025-05-02 13:12] VITALS: BP 131/79; PULSE 70; RESP 18; TEMP 36.4; O2SAT 96
--- NOTE | 2025-05-02 13:16 | EKG_ITS ---
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
[2025-05-02 13:17] VITALS: PULSE 77; RESP 18; O2SAT 98; BMI 20.4
[2025-05-02 13:27] VITALS: BP 148/76; PULSE 70; RESP 18; TEMP 36.3; O2SAT 70
--- NOTE | 2025-05-02 13:44 | XR_ITS ---
Examination: AP chest single view Technique one AP portable upright chest single view Date and time: May 02, 2025, 1356 hrs., Comparison 04/07/2025 Indications: Chest pain today. Findings: Mild to moderate enlargement cardiac contour. Prominent vascular congestion. Suspicious for early septal edema at the lung bases. Transvenous dual-chamber bipolar cardiac leads satisfactory position Impression: Suspicious for early heart failure
--- NOTE | 2025-05-02 13:45 | PD.EDSYNC ---
ED Syncope RME/HPI General Chief Complaint: Syncope / Near Syncope Stated Complaint: SYNCOPE Time Seen by Provider: 05/02/25 13:27 Arrival date/time: 05/02/25 13:09 RME / HPI RME / HPI narrative: 84-year-old female patient was brought in by EMS for evaluation regarding syncope. Patient was in the [facility] doing shopping, suddenly developed sudden onset of dizziness, patient had to sat down and later on does not know what happened. When she woke up a lot of people already surrounding her. Currently patient is back to baseline she denies any chest pain no headache no nausea no vomiting no diarrhea. Patient told me that 1 hour prior to going to [facility] she took all her blood pressure medication. Related Data Home Medications ?Medication ?Instructions ?Recorded ?Confirmed levothyroxine 50 mcg tablet 50 mcg PO QDAY 11/12/20 06/17/24 metoprolol tartrate 50 mg tablet 50 mg PO BID 09/15/21 06/17/24 trazodone 100 mg tablet 100 mg PO HS 09/15/21 06/17/24 dexlansoprazole 60 mg 60 mg PO QDAY 05/19/24 06/17/24 capsule,biphase delayed release Held on 05/19/24. Instructions: Doctor's Order loratadine 10 mg tablet (Allergy 10 mg PO QDAY 05/19/24 06/17/24 Relief (loratadine)) losartan 50 mg tablet 50 mg PO QDAY 05/19/24 06/17/24 sertraline 25 mg tablet 25 mg PO QDAY 05/19/24 06/17/24 vonoprazan 20 mg tablet (Voquezna) 20 mg PO QDAY 05/19/24 06/17/24 Held on 05/19/24. Instructions: Doctor's Order montelukast 10 mg tablet 10 mg PO QDAY 06/06/24 06/17/24 Previous Rx's ?Medication ?Instructions ?Recorded mecobalamin (vitamin B12) 5,000 5,000 mcg PO QWEEK #4 tabs 06/10/24 mcg disintegrating tablet omeprazole 40 mg capsule,delayed 40 mg PO BID #60 caps 06/10/24 release dextromethorphan polistirex 30 10 ml PO Q12H #89 mL 06/17/24 mg/5 mL oral susp ext.release 12hr (Robitussin ER) megestrol 800 mg/20 mL (20 mL) 200 mg (5 mL) PO BID #1,000 mL 06/17/24 oral suspension Allergies Allergy/AdvReac Type Severity Reaction Status Date / Time codeine Allergy Severe Vomiting Verified 04/07/25 08:38 Review of Systems Review of Systems Narrative Review of Systems: Review of system reviewed and within normal limits except mentioned in HPI ED Exam Narrative Physical exam: VITAL SIGNS: Reviewed. GENERAL APPEARANCE: Alert and interactive, follows commands, no acute distress, HEAD AND FACE: Non-traumatic. ENT: PERRL, pink conjunctivitis, eyelid no trauma, Mucous membrane moist. NECK: Supple, nontender, no nuchal rigidity. CHEST: No tenderness, no crepitus, no paradoxical movement, no retractions. LUNGS: Clear, well ventilated, symmetric, no rales, no wheezing, no ronchi, no stridor, good breath sounds bilaterally. HEART: Regular rate, regular rhythm, no murmur, no gallops. ABDOMEN: Soft, positive bowel sounds, nondistended, no guarding, nontender, no rebound, no masses, RECTAL: Deferred. GENITAL: Deferred. NEUROLOGICAL: Gross motor function intact sensory function intact, Appropriate for age. MUSCULOSKELETAL: low back nontender, full range of motion. EXTREMITIES: Nontender, full range of motion. SKIN: Color pink, dry, no rash, no lacerations, no abrasions, no contusions. LYMPHATICS: Deferred. Course Quality Measures none Orders Category Date Time Status EKG (ED ONLY) *Do not use* NOW Care 05/02/25 13:16 Completed EKG (ED ONLY) *Do not use* NOW Care 05/02/25 13:45 Completed Diet Regular Diet 05/02/25 Dinner Active EKG (ED Only) Stat Exams 05/02/25 13:16 Draft EKG (ED Only) Stat Exams 05/02/25 13:45 Ordered XR chest 1V Stat Exams 05/02/25 13:44 Completed CBC Stat Lab 05/02/25 14:09 Completed Comprehensive Metabolic Panel Stat Lab 05/02/25 14:09 Completed Partial Thromboplastin Time Stat Lab 05/02/25 14:09 Completed Troponin I Stat Lab 05/02/25 14:09 Completed Vital Signs Vital signs: Vital Signs Temperature 97.6 F 05/02/25 13:12 Pulse Rate 70 05/02/25 13:12 Respiratory Rate 18 05/02/25 13:12 Blood Pressure 131/79 H 05/02/25 13:12 Pulse Oximetry (%) 96 05/02/25 13:12 Oxygen Delivery Method Room Air 05/02/25 13:12 Syncope MDM Narrative MDM Narrative:: 84-year-old female patient was brought in by EMS for evaluation regarding syncope. Patient was in the [facility] doing shopping, suddenly developed sudden onset of dizziness, patient had to sat down and later on does not know what happened. When she woke up a lot of people already surrounding her. Currently patient is back to baseline she denies any chest pain no headache no nausea no vomiting no diarrhea. Patient told me that 1 hour prior to going to [facility] she took all her blood pressure medication. EKG showed paced rhythm, ventricular rate of 71 bpm, no ST segment elevation or depression noted. Patient's workup today all came back unremarkable. Patient was noted to be ambulatory, unaided, with no recurrence of near-syncope or syncope. Patient is telling me that she is ready to go home Stable for discharge home Patient data External records reviewed:: None Clinical information provided by:: patient Social determinants that could affect healthcare access:: none Patient has the following chronic illnesses:: Retention How is presenting disease/condition affected by chronic disease/condition?: exacerbated by Evaluation data The following diagnostics were reviewed and interpreted by me:: lab results, radiology exam(s) and EKG tracing(s) Lab and/or radiology exams considered but not ordered:: None Interpretation Summary: Chest x-ray as interpreted by me showed possible early heart failure otherwise unremarkable no pneumonia no pneumothorax no hemothorax. Medications / Prescriptions Medications or Prescriptions considered but not ordered:: None Medication administrations:: None Consultations Consultation(s) initiated? (list below): No Diagnosis Syncope Differential Diagnosis: vasovagal syncope and dehydration Most likely diagnosis given after review of the tests above:: Vasovagal syncope Admission Indicated Admission indicated?: not indicated Admission Request Was there a request for admission?: No Disposition Plan Disposition Plan: Discharge Discharge Attestation Discharge Attestation: The patient was given an opportunity to ask questions and understood the discharge instructions. Discharge instructions specifically effects, indications for sooner follow up or return to the emergency department, and the expected course of current diagnosis. Patient condition: Stable Discharge Plan Plan Patient Disposition: HOME (Self Care) Discharge Disposition comment: Stable Prescriptions/Referrals Prescriptions/Med Rec: No Action dexlansoprazole 60 mg capsule,biphase delayed releas 60 mg PO QDAY Voquezna 20 mg tablet 20 mg PO QDAY losartan 50 mg tablet 50 mg PO QDAY loratadine [Allergy Relief (loratadine)] 10 mg tablet 10 mg PO QDAY sertraline 25 mg tablet 25 mg PO QDAY montelukast 10 mg tablet 10 mg PO QDAY megestrol 800 mg/20 mL (20 mL) suspension 200 mg PO BID Qty: 1000 0RF dextromethorphan polistirex [Robitussin ER] 30 mg/5 mL suspension,extended rel 12 hr 10 ml PO Q12H Qty: 89 0RF omeprazole 40 mg capsule,delayed release(DR/EC) 40 mg PO BID Qty: 60 2RF mecobalamin (vitamin B12) 5,000 mcg tablet,disintegrating 5,000 mcg PO QWEEK Qty: 4 0RF levothyroxine 50 mcg tablet 50 mcg PO QDAY trazodone 100 mg Tablet 100 mg PO HS metoprolol tartrate 50 mg Tablet 50 mg PO BID Referrals: Yvon Lopez [Primary Care Provider] - In 1 week Problem List Clinical Impression: Vasovagal syncope Patient/Caregiver Discharge Instructions Discharge Activity: activity as tolerated Education Materials: ED Fainting, Vagal Reaction Additional Instructions: Thank you for the opportunity for serving you today. You are stable for discharged . You are advised to: Follow-up with your PCP in 1 to 2 days Return to ED for worsening of symptoms Increase oral fluids Check your blood pressure prior to taking your blood pressure medications every day Print Language: Maori Stand Alone Forms: [employer]ira Award Info., Patient Portal Info Letter MICHELL/EL Supervising Physician MICHELL/EL Supervising Physician: MD Devin
[2025-05-02 13:49] VITALS: O2SAT 96
[2025-05-02 14:29] LABS: Basophils # (Auto) 0.0 Thou/mm3 (0.0-0.2); Basophils % (Auto) 0 % (0-2.5); Eosinophils # (Auto) 0.0 Thou/mm3 (0.0-0.5); Eosinophils % (Auto) 0 % (0-10); Hematocrit 35.0 % (36.0-46.0); Hemoglobin 12.0 g/dL (12.0-16.0); Immature Granulocytes Auto 0.02 Thou/mm3 (0.00-0.00); Lymphocytes # (Auto) 0.9 Thou/mm3 (1.0-4.8); Lymphocytes % (Auto) 13 % (10-50); Mean Corpuscular HGB Conc 34.3 g/dl (31.0-37.0); Mean Corpuscular Hemoglobin 35.2 pg (25.0-35.0); Mean Corpuscular Volume 103 fL (80-100); Monocytes # (Auto) 0.6 Thou/mm3 (0.0-0.8); Monocytes % (Auto) 9 % (0-12); Neutrophils # (Auto) 5.0 Thou/mm3 (1.8-7.7); Neutrophils % (Auto) 77 % (37-80); Nucleated Red Blood Cell # 0.00 Thou/mm3 (0.00-0.00); Nucleated Red Blood Cell % 0 /100 WBC (0); Platelet Count 150 Thou/mm3 (140-440); RDW Standard Deviation 68.3 fL (36.4-46.3); Red Blood Count 3.41 Miln/mm3 (4.00-5.20); White Blood Count 6.5 Thou/mm3 (3.6-11.0)
[2025-05-02 14:44] LABS: Partial Thromboplastin Time 26.6 Seconds (22.0-36.0)
[2025-05-02 14:53] VITALS: BP 144/85; PULSE 70; RESP 17; O2SAT 98
[2025-05-02 15:08] LABS: Alanine Aminotransferase 9 U/L (10-49); Albumin, Serum 3.8 gm/dL (3.4-4.8); Albumin/Globulin Ratio 1.8 (1.2-2.2); Alkaline Phosphatase 67 U/L (46-116); Anion Gap 9 (7-16); Aspartate Amino Transferase 16 U/L (0-34); BUN/Creatinine Ratio 8 Ratio (12-20); Bilirubin,Total 1.5 mg/dL (0.3-1.2); Blood Urea Nitrogen 10 mg/dL (9-23); Calcium 9.1 mg/dL (8.3-10.6); Calcium (Corrected) 9.3 mg/dL (8.5-10.1); Carbon Dioxide 29.3 mMol/L (20.0-31.0); Chloride 105 mMol/L (98-107); Creatinine (Component) 1.3 mg/dL (0.6-1.3); Estimated Creatinine Clearance 28.4 mL/min (>60); Globulin 2.1 gm/dL (2.3-3.5); Glucose 114 mg/dL (74-106); Osmolality,Calculated 284 (275-295); Potassium 4.2 mMol/L (3.4-5.1); Sodium 143 mMol/L (136-145); Total Protein 5.9 gm/dL (5.7-8.2); Troponin I < 0.020 ng/mL (0.0-0.045); eGFR 41 See Note
[2025-05-02 15:45] VITALS: BP 158/83; PULSE 70; RESP 18; TEMP 36.6; O2SAT 98
== END 2025-05-02 16:44 | disposition home or self-care (01) ==
PROVIDERS: Nurse Practitioner Family; Emergency Provider Emergency Medicine; PCP Internal Medicine
DX: R55 Syncope and collapse (principal)
CPT/HCPCS: 36415; 71045; 80053; 81001; 84484; 85025; 85730; 93005; 99284

== ENCOUNTER 2025-06-10 08:12 | Day surgery (SDC) | payer MEDICARE, BC, SELFPAY ==
[2025-06-10] VITALS (11 sets, daily range): BP systolic 111–181; BP diastolic 53–88; PULSE 54–67; RESP 14–21; TEMP 36.5–37.1; O2SAT 95–100; BMI 19.5
--- NOTE | 2025-06-10 06:35 | EKG_ITS ---
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 : 1940 Requested By: Hedy Harris Order Number: [id number] Reading MD: Hedy Harris Measurements Intervals [place] Rate: 59 P: AR: QRS: -37 QRSD: 96 T: 162 QT: 448 QTc: 446 Interpretive Statements ATRIAL FIBRILLATION WITH SLOW VENTRICULAR RESPONSE MARKED LEFT AXIS DEVIATION [QRS AXIS < -30] LOW QRS VOLTAGE IN PRECORDIAL LEADS [QRS DEFLECTION < 1.0 mV IN CHEST LEADS] INCOMPLETE RIGHT BUNDLE BRANCH BLOCK [90+ ms QRS DURATION, TERMINAL R IN V1/V2, 40+ ms S IN I/aVL/V4/V5/V6] POSSIBLE ANTERIOR MYOCARDIAL INFARCTION , OF INDETERMINATE AGE [30 ms Q WAVE IN V3/V4, OR R < 0.2 mV IN V4] MODERATE T-WAVE ABNORMALITY, CONSIDER LATERAL ISCHEMIA [-0.1+ mV T WAVE IN I/aVL/V5/V6] Compared to ECG 05/02/2025 13:20:20 Low QRS voltage now present Incomplete right bundle-branch block now present Myocardial infarct finding now present Possible ischemia now present Atrial-paced complex(es) or rhythm no longer present T-wave abnormality still present /store/S0/[id number]
[2025-06-10 07:44] LABS: Basophils # (Auto) 0.1 Thou/mm3 (0.0-0.2); Basophils % (Auto) 1 % (0-2.5); Eosinophils # (Auto) 0.3 Thou/mm3 (0.0-0.5); Eosinophils % (Auto) 3 % (0-10); Hematocrit 37.2 % (36.0-46.0); Hemoglobin 12.7 g/dL (12.0-16.0); Immature Granulocytes Auto 0.02 Thou/mm3 (0.00-0.00); Lymphocytes # (Auto) 1.6 Thou/mm3 (1.0-4.8); Lymphocytes % (Auto) 21 % (10-50); Mean Corpuscular HGB Conc 34.1 g/dl (31.0-37.0); Mean Corpuscular Hemoglobin 34.8 pg (25.0-35.0); Mean Corpuscular Volume 102 fL (80-100); Monocytes # (Auto) 1.3 Thou/mm3 (0.0-0.8); Monocytes % (Auto) 17 % (0-12); Neutrophils # (Auto) 4.5 Thou/mm3 (1.8-7.7); Neutrophils % (Auto) 58 % (37-80); Nucleated Red Blood Cell # 0.00 Thou/mm3 (0.00-0.00); Nucleated Red Blood Cell % 0 /100 WBC (0); Platelet Count 206 Thou/mm3 (140-440); RDW Standard Deviation 71.5 fL (36.4-46.3); Red Blood Count 3.65 Miln/mm3 (4.00-5.20); White Blood Count 7.7 Thou/mm3 (3.6-11.0)
[2025-06-10 08:00] LABS: Anion Gap 9 (7-16); BUN/Creatinine Ratio 8 Ratio (12-20); Blood Urea Nitrogen 9 mg/dL (9-23); Calcium 8.6 mg/dL (8.3-10.6); Carbon Dioxide 28.4 mMol/L (20.0-31.0); Chloride 107 mMol/L (98-107); Creatinine (Component) 1.2 mg/dL (0.6-1.3); Glucose 118 mg/dL (74-106); Osmolality,Calculated 286 (275-295); Potassium 4.0 mMol/L (3.4-5.1); Sodium 144 mMol/L (136-145); eGFR 45 See Note
--- NOTE | 2025-06-10 08:25 | PC.NURSE ---
/patient does not know home medications, based on H&P meds from 06/05/25 no blood thinners, pt has no changes from last dr visit with kehinde, except she ran out of some medications for allergies.
[2025-06-10 08:40] LABS: INR 1.2 (0.9-1.3); Partial Thromboplastin Time 28.7 Seconds (22.0-36.0); Prothrombin Time 12.4 Seconds (9.0-12.2)
--- NOTE | 2025-06-10 12:32 | PC.NURSE ---
0945 patient is sleepy and arousable, breathing unlabored, s/p ICD battery exchange, dressing to left chest dry with no bleeding, patient placed in denture laboratory technician bay 6 for 2 hour recovery. 1045 patient awake and did not want food tray, instead she ate small bites of sandwich and sips of 7up [id number] hilda called at [phone] to chicken picker patient 1215 patient is awake, alert, breathing unlabored, dressing dry with no bleeding, meets discharge criteria, discharge instructions given to patient and neighbor Hilda, patient discharged home in wheelchair with all belongings.
--- NOTE | 2025-06-10 15:05 | ESOP_ITS ---
RE: CORA DOW : 1940 DATE OF OPERATION: 06/10/2025 PROCEDURES PERFORMED: 1. Removal of the dual chamber automatic implantable cardioverter defibrillator generator and replacement with a new automatic implantable cardioverter defibrillator generator, AICD, CPT code 87041. 2. Conscious sedation, 30-minute duration. DIAGNOSES: Nonischemic cardiomyopathy, history of ventricular tachycardia requiring automatic implantable cardioverter defibrillator implantation, and elective replacement indicators. HISTORY AND INDICATION: The patient is an 84-year-old female with a history of nonischemic cardiomyopathy, chronic systolic heart failure, and history of ventricular tachycardia, sustained VT episodes requiring ICD implantation back in 2019, reached removal of indicators, elective replacement indicator, battery depletion, unable to interrogate the device, hence ICD generator removal and replacement recommended under local anesthesia and conscious sedation. OPERATION DETAILS: Patient brought to the operating room/cardiac cath laboratory. Informed consent was obtained. Conscious sedation was given using 2 mg Versed and 75 micrograms of fentanyl. The left subclavian area was prepped and draped in sterile fashion and given 1% Xylocaine for local anesthesia with epinephrine. A linear incision was made. With a blunt dissection, the pocket was opened. The capsule was resected. The dual chamber ICD generator was then removed and explanted and thresholds were found to be excellent. After obtaining satisfactory thresholds, the leads were then attached to a new dual chamber automatic implantable cardioverter defibrillator generator. The generator was then attached and secured to the pectoral fascia with 2-0 silk suture. Antibiotic solution was used to cleanse the pocket. Subcutaneous tissue was closed using 2-0 chromic continuous suture. Skin was closed using kacy. Patient tolerated the operation very well. No complications. The device details are as follows. The thresholds are as follows: Right atrium threshold is found to be 0.9 volts and lead impedance 719 ohms. Right ventricle threshold 0.9 volts, lead impedance 430 ohms, shock impedance 51, and current 2.1 mA. The P waves were sensed at 1.8 millivolts. R waves sensed at 8.5 millivolts. The device is programmed to DDD rate of 55 low rate limit, upper rate limit 130. The VT zone is programmed monitor only at 160, and 180 and above to have shock, ATP x2 for ATP followed by 3 shocks, 41 joules max, at 210 shock x6. The device that is implanted today is manufactured by [employer]. The model number is D413, Perciva ICD DF4, model number D413. Serial number is [id number]. The device that is removed was implanted on 02/03/2019, [employer], model number D022, serial number is [id number]. The leads in place are [employer]. The atrial lead is a Eureka active fixation dual coil. The ventricle lead is a Eureka 4-SITE dual coil lead, 59 cm length, model number is 0295, serial number is [id number]. Atrial lead is manufactured by [employer], model number 7740, active fixation lead, serial number is [id number]. FINAL SUMMARY: Successful removal and replacement of dual chamber automatic implantable cardioverter defibrillator generator. COMPLICATIONS: None. ESTIMATED BLOOD LOSS: Zero. DT: 14:47:04 TT: 15:04:00 Ref: [id number] - TID: [id number]
== END 2025-06-10 12:15 | disposition home or self-care (01) ==
PROVIDERS: PCP Internal Medicine; Referring Provider Internal Medicine Cardiovascular Disease; Visit Provider Internal Medicine Cardiovascular Disease
PROC: (CPT 33263; principal; 2025-06-10 09:00)
DX: Z45.02 Encounter for adjustment and management of automatic implantable cardiac defibrillator (principal); I47.20 Ventricular tachycardia, unspecified; K21.9 Gastro-esophageal reflux disease without esophagitis; I11.0 Hypertensive heart disease with heart failure; I50.22 Chronic systolic (congestive) heart failure; I42.8 Other cardiomyopathies
CPT/HCPCS: 33263; 36415; 80048; 85025; 85610; 85730; 93005; 99152; 99153; A4649; C1721; J0168; J0461; J0689; J2250; J2312; J2371; J2405; J3010; J3490

== ENCOUNTER → 2025-07-15 | Outpatient (CLI) | payer MEDICARE, BC, SELFPAY ==
--- NOTE | 2025-07-15 14:30 | XR_ITS ---
Examination: Carotid arterial duplex scan, ultrasound. Date and time of exam: July 15, 2025, 1458 hours INDICATIONS: Dizziness episodes beginning 1 year ago Technique: Multiple sonographic images have been obtained of the carotid arteries and vertebral arteries, B-mode/grayscale imaging and Doppler spectral analysis and color flow Peak systolic and diastolic velocities have been recorded. Systolic diastolic ratios have been calculated. Findings: Right peak systolic velocities: Distal internal carotid artery peak systolic velocity is 0.5 M/sec Proximal internal carotid artery peak systolic velocity is 0.7 M/sec Carotid bifurcation peak systolic velocity is 0.6 M/sec External carotid artery peak systolic velocity is 0.7 M/sec Vertebral artery flow is antegrade. Left peak systolic velocities: Distal internal carotid artery peak systolic velocity is 0.5 M/sec Proximal internal carotid artery peak systolic velocity is 0.6 M/sec Carotid bifurcation peak systolic velocity is 0.8 M/sec External carotid artery peak systolic velocity is 0.7 M/sec Vertebral artery flow is antegrade Doppler waveform analysis demonstrates no spectral broadening Impression: Right internal carotid artery demonstrates 0 to 10% stenosis. Left internal carotid artery demonstrates 0 to 10% stenosis.
== END | disposition home or self-care (01) ==
PROVIDERS: PCP Student in an Organized Health Care Education/Training Program; Referring Provider Student in an Organized Health Care Education/Training Program; Visit Provider Student in an Organized Health Care Education/Training Program
DX: R55 Syncope and collapse (principal)
CPT/HCPCS: 93880